=== PATIENT | female | born 1970 | race Caucasian/White ===

== ENCOUNTER 2020-08-24 13:00 | Emergency (ER) | payer OTHER ==
[~2020-08-24] VITALS: Ht 162.6 cm; Wt 100.0 kg
[2020-08-24 15:35] LABS: EOSINOPHILS % 1.7 % (0.0-5.0); HEMATOCRIT. 25.7 % (36.0-48.0); HEMOGLOBIN. 8.2 g/dL (12.0-16.0); LYMPHOCYTES % 33.5 % (20.0-50.0); MEAN CORPUSCULAR HEMOGLOBIN 24.1 pg (28.0-32.0); MEAN CORPUSCULAR VOLUME 75.6 fL (81.0-99.0); MEAN PLATELET VOLUME 9.4 fl (7.4-10.4); MONOCYTES % 6.2 % (2.0-8.0); NEUTROPHILS % 57.6 % (40.0-76.0); PLATELET 58 x1000/uL (130-400); RED CELL DISTRIBUTION WIDTH 19.5 % (11.6-14.6)
[2020-08-24 15:40] LABS: CHLORIDE 107 mEq/L (98-107)
[2020-08-24 15:51] VITALS: BP 124/64
== END 2020-08-24 16:45 | disposition home or self-care (01) ==
LOC: ER 13:00
DX: R06.00 Dyspnea, unspecified (principal); R07.89 Other chest pain; Z86.19 Personal history of other infectious and parasitic diseases
CPT/HCPCS: 36415; 71045; 80053; 83880; 84484; 85025; 85379; 93005; 99285

== ENCOUNTER 2022-03-04 07:29 | Emergency (ER) | payer MEDICAID, OTHER ==
[~2022-03-04] VITALS: Ht 162.6 cm; Wt 104.0 kg
[2022-03-04 09:14] LABS: BASOPHILS % 0.6 % (0.0-2.0); EOSINOPHILS % 2.2 % (0.0-5.0); HEMATOCRIT. 43.3 % (36.0-48.0); LYMPHOCYTES % 14.1 % (20.0-50.0); MEAN CORPUSCULAR HEMOGLOBIN 26.7 pg (28.0-32.0); MEAN CORPUSCULAR VOLUME 82.4 fL (81.0-99.0); MEAN PLATELET VOLUME 8.5 fl (7.4-10.4); MONOCYTES % 4.8 % (2.0-8.0); NEUTROPHILS % 78.3 % (40.0-76.0); PLATELET 345 x1000/uL (130-400); RED BLOOD CELL COUNT 5.25 mill/uL (4.2-5.4); RED CELL DISTRIBUTION WIDTH 16.3 % (11.6-14.6)
[2022-03-04 09:19] LABS: CHLORIDE 109 mEq/L (98-107)
[2022-03-04 09:50] LABS: CLARITY URINE TURBID (CLEAR); COLOR URINE RED (YELLOW); KETONES URINE NEGATIVE (NEGATIVE); LEUKOCYTE ESTERASE URINE 2+ (NEGATIVE); NITRITE URINE POSITIVE (NEGATIVE); OCCULT BLOOD URINE 2+ (NEGATIVE); PROTEIN URINE 2+ (NEGATIVE); SPECIFIC GRAVITY URINE 1.026 (1.005-1.030); UROBILINOGEN URINE 0.2 E.U./dL (0.2-1.0)
[2022-03-04] MEDS ORDERED: CEFTRIAXONE 1 G PREMIX 50 ML IV ONE (14:15)
[2022-03-04] MEDS ORDERED: CEFTRIAXONE SODIUM 1 G/VIAL IM ONE (14:45)
[2022-03-04] MEDS ORDERED: CEPH500C2 MT (15:32)
[2022-03-04 15:34] VITALS: BP 149/73
== END 2022-03-04 15:34 | disposition home or self-care (01) ==
LOC: ER 07:29
DX: N93.9 Abnormal uterine and vaginal bleeding, unspecified (principal); R42 Dizziness and giddiness; I10 Essential (primary) hypertension; Z78.0 Asymptomatic menopausal state
CPT/HCPCS: 36415; 76830; 76856; 80053; 81003; 85025; 87086; 93005; 96372; 99285; J0696

== ENCOUNTER 2022-04-08 08:49 | Emergency (ER) | payer MEDICAID ==
[~2022-04-08] VITALS: Ht 160 cm; Wt 102.0 kg
[~2022-04-08 08:49] MED LIST: CEPH500C2 MT
[2022-04-08 08:58] VITALS: BP 160/95
[2022-04-08] MEDS ORDERED: MAGNESIUM/ALUMINUM HYDROXIDE/SIMETHICONE 30ML UDC PO STA (09:37)
[2022-04-08] MEDS ORDERED: METOCLOPRAMIDE HCL 10MG/2ML VIAL IV STA (09:37)
[2022-04-08] MEDS ORDERED: KETOROLAC 30MG/ML VIAL IV STA (09:37)
[2022-04-08] MEDS ORDERED: SODIUM CHLORIDE 0.9% 1,000 ML IV ONE (09:45)
[2022-04-08 10:04] LABS: BASOPHILS % 0.3 % (0.0-2.0); HEMOGLOBIN. 14.4 g/dL (12.0-16.0); LYMPHOCYTES % 17.1 % (20.0-50.0); MEAN CORPUSCULAR HEMOGLOBIN 27.1 pg (28.0-32.0); MEAN CORPUSCULAR VOLUME 83.1 fL (81.0-99.0); MEAN PLATELET VOLUME 8.6 fl (7.4-10.4); MONOCYTES % 4.6 % (2.0-8.0); PLATELET 342 x1000/uL (130-400); RED CELL DISTRIBUTION WIDTH 14.9 % (11.6-14.6)
[2022-04-08 10:09] LABS: CLARITY URINE CLEAR (CLEAR); COLOR URINE YELLOW (YELLOW); KETONES URINE NEGATIVE (NEGATIVE); LEUKOCYTE ESTERASE URINE NEGATIVE (NEGATIVE); NITRITE URINE NEGATIVE (NEGATIVE); OCCULT BLOOD URINE 1+ (NEGATIVE); PROTEIN URINE NEGATIVE (NEGATIVE); SPECIFIC GRAVITY URINE 1.019 (1.005-1.030); UROBILINOGEN URINE 0.2 E.U./dL (0.2-1.0)
[2022-04-08 10:13] LABS: CHLORIDE 103 mEq/L (98-107)
[2022-04-08] MEDS ORDERED: ONDA4TAB11 PO (11:07)
== END 2022-04-08 11:22 | disposition home or self-care (01) ==
LOC: ER 09:04
DX: R11.0 Nausea (principal)
CPT/HCPCS: 36415; 80053; 81003; 83690; 84484; 85025; 93005; 96361; 96374; 96375; 99284; J1885; J2765; J7030

== ENCOUNTER 2022-10-30 01:32 | Emergency (ER) | payer SELFPAY ==
[~2022-10-30] VITALS: Ht 162.6 cm; Wt 100.3 kg
[~2022-10-30 01:32] MED LIST changes: +ONDA4TAB11 PO
[2022-10-30 01:39] VITALS: BP 154/74
[2022-10-30 08:26] LABS: BASOPHILS % 0.3 % (0.0-2.0); EOSINOPHILS % 3.8 % (0.0-5.0); HEMATOCRIT. 42.9 % (36.0-48.0); HEMOGLOBIN. 13.9 g/dL (12.0-16.0); MEAN CORPUSCULAR HEMOGLOBIN 26.1 pg (28.0-32.0); MEAN CORPUSCULAR VOLUME 80.6 fL (81.0-99.0); MEAN PLATELET VOLUME 8.4 fl (7.4-10.4); MONOCYTES % 7.6 % (2.0-8.0); NEUTROPHILS % 57.3 % (40.0-76.0); PLATELET 327 x1000/uL (130-400); RED BLOOD CELL COUNT 5.33 mill/uL (4.2-5.4)
[2022-10-30 08:31] LABS: CHLORIDE 106 mEq/L (98-107)
[2022-10-30 08:47] LABS: T4 FREE 1.12 ng/dL (0.76-1.46)
== END 2022-10-30 12:40 | disposition home or self-care (01) ==
LOC: ER 02:03
DX: R00.2 Palpitations (principal); I10 Essential (primary) hypertension
CPT/HCPCS: 36415; 71045; 80053; 83880; 84439; 84443; 84484; 85025; 93005; 99285

== ENCOUNTER 2024-11-17 03:31 | Inpatient (IN) | payer SELFPAY ==
[~2024-11-17] VITALS: Ht 162.6 cm; Wt 100.5 kg
[~2024-11-17 03:31] MED LIST changes: +ONDA-239 PO; -ONDA4TAB11 PO
[2024-11-17 04:47] LABS: BASOPHILS % 0.5 % (0.0-2.0); EOSINOPHILS % 3.2 % (0.0-5.0); HEMATOCRIT. 43.9 % (36.0-48.0); HEMOGLOBIN. 14.3 g/dL (12.0-16.0); LYMPHOCYTES % 28.2 % (20.0-50.0); MEAN CORPUSCULAR HEMOGLOBIN 28.7 pg (28.0-32.0); MEAN CORPUSCULAR HGB CONC 32.6 g/dL (31.0-37.0); MEAN PLATELET VOLUME 9.1 fl (7.4-10.4); MONOCYTES % 9.3 % (2.0-8.0); NEUTROPHILS % 58.8 % (40.0-76.0); PLATELET 261 x1000/uL (130-400); RED BLOOD CELL COUNT 4.99 mill/uL (4.2-5.4); RED CELL DISTRIBUTION WIDTH 13.8 % (11.6-14.6); WHITE BLOOD COUNT 7.4 x1000/uL (4.5-11.0)
[2024-11-17 05:09] LABS: CHLORIDE 108 mEq/L (98-107); POTASSIUM 3.7 mEq/L (3.5-5.1); SODIUM 143 mEq/L (136-145)
[2024-11-17 05:10] LABS: CARBON DIOXIDE 27 mEq/L (21-32)
[2024-11-17 05:15] LABS: CREATININE 0.5 mg/dL (0.6-1.0); GLUCOSE 114 mg/dL (70-105); UREA NITROGEN BLOOD 14 mg/dL (9-23)
[2024-11-17 05:16] LABS: TROPONIN I HIGH SENSITIVITY 26 ng/L (3.0-34)
[2024-11-17 08:45] VITALS: BP 171/88; PULSE 50; RESP 16; TEMP 36.6; O2SAT 98
[2024-11-17 10:00] VITALS: BP 171/88; PULSE 50; RESP 16; TEMP 36.6
[2024-11-17 10:30] VITALS: BP 162/73
[2024-11-17] MEDS ORDERED: ACETAMINOPHEN 325MG TABLET PO PRN (11:15)
[2024-11-17] MEDS ORDERED: ONDANSETRON HCL 4MG/2ML INJ IV PRN (11:15)
[2024-11-17] MEDS: AMLODIPINE 10MG TABLET PO SCH (11:47)
[2024-11-17] MEDS ORDERED: NIFE-33 MT (11:53)
[2024-11-17 12:00] VITALS: BP 163/90; PULSE 49; RESP 16; TEMP 36; O2SAT 100
[2024-11-17 12:34] LABS: CALCIUM 9.9 mg/dL (8.7-10.4)
[2024-11-17 13:59] VITALS: BP 158/85; PULSE 63; TEMP 97.8; O2SAT 100
== END 2024-11-17 15:10 | disposition home or self-care (01) | DRG 199 ==
LOC: ER 03:56 → 6WST 07:50 → EDBEDREQ 07:59 → EDBEDREQTM 07:59
PROVIDERS: ADMIT Internal Medicine; ATTEND Internal Medicine
DX: I16.0 Hypertensive urgency (principal); F41.9 Anxiety disorder, unspecified; I10 Essential (primary) hypertension; G47.00 Insomnia, unspecified
CPT/HCPCS: 36415; 71045; 80048; 84484; 85025; 93005; 99285